=== PATIENT | female | born 1960 | race Caucasian/White ===

== ENCOUNTER 2016-03-15 09:16 | Observation (INO) | payer SELFPAY ==
--- NOTE | 2016-03-15 09:52 | EDPRACDOC ---
- General Information Chief Complaint: Chest Pain Stated Complaint: CHEST PAIN Time Seen by Provider: 03/15/16 09:44 Information Source: Patient Mode of Arrival: Car Home Medications: Home Medications Levothyroxine Sodium [Synthroid] 137 mcg PO DAILY 03/15/16 Pregabalin [Lyrica] 1 cap PO QHS 03/15/16 Benzonatate [Tessalon] 200 mg PO Q8H PRN #90 capsule 03/16/16 Metoprolol Tartrate [Lopressor] 25 mg PO BID #60 tablet 03/16/16 Nicotine [Nicoderm] 21 mg TOP Q24H #30 pat 03/16/16 Omeprazole Magnesium [Prilosec Otc] 20 mg PO BID #42 tablet. 03/16/16 Allergies/Adverse Reactions: Allergies Allergy/AdvReac Type Severity Reaction Status Date / Time diphenhydramine Allergy See Verified 03/15/16 13:19 [From Corrie] Comments - History of Present Illness Onset: YESTERDAY AND [employer] Chest Pain Location: Reports: Substernal Pain Radiation: Reports: None Symptoms Occur: Reports: Gradually, At Rest, With light exertion Cardiac Risk Factors: Reports: Smoker, Hypertension. 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 Denies: SOB, Abdominal Pain, Vomiting, Calf Pain or Swelling, Chest Rash Other History: PT HAD CP LAST YEAR, EVALED BY PCP, EKG REPORTED TO BE NEG. ED Past Medical History - History Reviewed Yes Nurses notes reviewed and agree except as marked If yes, which country: [place] Travel dates: RETURNED January - Patient Medical History Cardiac History: Reports: Hypertension. Denies: Cardiac Catheterization, Stress Test Respiratory History: Reports: Asthma, COPD Psychological History: Reports: Depression Additional Past Medical History: Chronic Pain Syndrome Surgical History: Reports: Appendectomy, Hysterectomy, Tonsillectomy/ Adnoidectomy Additional Past Surgical History: THYROIDECTOMY (BENING NODULES) - Social Medical History Smoking Status: Heavy tobacco smoker (5 or more cigarettes/day or daily pipe/ cigar) ETOH: None Substance Abuse: None Lives With: Family Lives In: Home EDM Review of Systems - Review of Systems ROS Negative Except as Marked: Yes All systems reviewed and were negative except as marked - Physical Exam Constitutional: Alert (Awake), No apparent distress Oriented to: Time, Person, Place Last recorded Vital Signs: Last Vital Signs Temp 98.1 F 03/15/16 09:25 Pulse 67 03/15/16 09:25 Resp 18 03/15/16 09:25 BP 117/56 L 03/15/16 09:25 Pulse Ox 94 03/15/16 09:25 Oxygen Pulse Oxygen Saturation 94 O2 Device Room Air Oxygen Flow Rate Fraction of Inspired Oxygen ( FIO2) - HEENT Head: Normal ( normocephalic) Eye Exam: Normal (PERRL, EOMI, Sclera white) Oropharynx: Normal (Pharynx:Moist without exudate,Gums-no swelling) Tympanic Membrane: Normal ENT EAC: Normal TMJ: Normal Nose: No Symptoms Reported (septum midline) Neck: Normal (FROM, trachea at midline) - Respiratory/Cardiovascular Respiratory: Normal - CTA (BBS clear to auscultation without adventitious sounds ) Cardiovascular: Normal (RRR without murmur, gallop or rub) - GI Auscultation: Normal (NABS) Palpation: Normal (Soft,No rebound or guarding, non distended) Tenderness: Non tender Varela's Sign: Negative - Musculoskeletal Back: Normal (Non-Tender) Extremities: Normal (Normal tone, Pulses 2+ No cyanosis or edema, FROM) - Integumentary Skin: Normal, Warm, Dry Lymphatics: Normal (no adenopathy) - Neurologic Memory Impaired: Normal Motor Function: Normal (Normal tone, Pulses 2+ No cyanosis or edema, FROM) Cranial Nerve: Normal (CN II-X11 intact sensation, strength 5/5) Cerebellar: Normal Mood Description: Normal Perception: Normal ED Chest Pain Exam - Respiratory/Cardiovascular Respiratory: Normal - CTA (clear to auscultation without adventitious sounds) Cardiovascular/Chest: Normal (RRR without murmur, gallop or rub) Radial Pulse: Normal Femoral Pulse: Normal Pedal Pulse: Normal Carotid Arteries: Normal Edema: 5 Chest Palpation: Normal (No chest tenderness) - Action Patient received Aspirin within last 24 hours?: Yes ASA given in the ED: No Patient received Beta [place] within last 24hrs: No - Re-evaluation Re-evaluation 2 Re-evaluation Time: 10:40 (PAIN INTERMITTENTLY, SOME BELCHING, BUT CURRENTLY PAIN FREE. STILL NO PAIN RUQ) - Results 03/15/16 09:50 03/16/16 04:05 - EKG EKG #1 EKG Time: 09:23 -: Yes EKG interpreted by me Rate: bpm: 66 [place]: Normal Rhythm: NSR Block: None Hypertrophy: None ST: Inf, Ischemia (ST DEP) Comments: NO OLD EKG FOR COMPARISON - Diagnostic Imaging Chest Image interpreted by: Radiologist Patient Name: AYDE WEBB LOC: ED : 1960 AGE: 55 Order Date:03/15/16 Date of Service:03/31 Report # [id number] Ord Physician: Hermelinda Dent MD Exam # [id number] Emergency Physician: Hermelinda Dent MD Exam(s): [id number] RAD/DG CHEST PORTABLE CLINICAL DATA: 55-year-old female with chest pain for 1 day. EXAM: PORTABLE CHEST 1 VIEW COMPARISON: None. FINDINGS: Upper limits normal heart size noted. There is no evidence of focal airspace disease, pulmonary edema, suspicious pulmonary nodule/mass, pleural effusion, or pneumothorax. No acute bony abnormalities are identified. Lower cervical spine surgical hardware noted. IMPRESSION: Upper limits normal heart size without evidence of active cardiopulmonary disease. Electronically Signed By: Jorge Tucker M.D. On: 03/15/2016 10:22 Electronically Signed By: Jorge Tucker MD Electronically Signed Date/Time: [id number] Dictate Date/Time: 03/15/16 1020 Technologist: Gita Heard Transcribed By: Machelle Transcribed Date/Time: 03/15/16 1022 - Departure Disposition: Admit IP To This Hospital Condition: Improved Final Diagnosis: Acute coronary syndrome Decision to Admit Time: 10:41 Decision to admit date: 03/20/16 Decision to admit: from ED - Physician Consulted Hospitalist Time Called: 10:40 Provider Called: William Johnson Time [employer] Returned Call: 10:41
[2016-03-15 10:11] LABS: AUTOMATED BASOPHIL 0.6 % (0-2); AUTOMATED EOSINOPHIL 3.5 % (0-5); AUTOMATED LYMPH 29.1 % (17-44); AUTOMATED MONOCYTE 5.2 % (3-10); AUTOMATED NEUTROPHIL 61.6 % (45-76); MPV 7.5 fL (7.4-10.4)
[2016-03-15 10:19] LABS: BLOOD UREA NITROGEN 11 MG/DL (7-17); CALCIUM 9.1 MG/DL (8.4-10.2); CALCULATED OSMOLALITY 270 MOs/Kg (270-290); CHLORIDE 102 mEq/L (98-107); CPK TOTAL WITH POSSIBLE MB 50 IU/L (30-134); GLUCOSE 106 MG/DL (70-99); SODIUM LEVEL 141 mEq/L (137-146); TOTAL PROTEIN 7.1 G/DL (6.3-8.2)
--- NOTE | 2016-03-15 10:25 | DIRPT ---
CLINICAL DATA: 55-year-old female with chest pain for 1 day. EXAM: PORTABLE CHEST 1 VIEW COMPARISON: None. FINDINGS: Upper limits normal heart size noted. There is no evidence of focal airspace disease, pulmonary edema, suspicious pulmonary nodule/mass, pleural effusion, or pneumothorax. No acute bony abnormalities are identified. Lower cervical spine surgical hardware noted. IMPRESSION: Upper limits normal heart size without evidence of active cardiopulmonary disease. Electronically Signed By: Jorge Tucker M.D. On: 03/15/2016 10:22
[2016-03-15 10:29] LABS: PARTIAL THROMB. TIME 24.7 SEC (22-35)
[2016-03-15] MEDS ORDERED: Enoxaparin 1 mg per kg per dose SQ ONE (10:36)
[2016-03-15] MEDS ORDERED: ENOXAPARIN 80 MG/0.8 ML PFS SQ ONE (11:00)
[2016-03-15] MEDS ORDERED: TEMAZEPAM 15 MG CAP PO PRN (11:07)
[2016-03-15] MEDS ORDERED: MORPHINE 2 MG/ML INJECTION IV PRN (11:07)
[2016-03-15] MEDS ORDERED: ACETAMINOPHEN 325 MG/TAB TABLET PO PRN (11:07)
[2016-03-15] MEDS ORDERED: NITROGLYCERINE 0.4 MG TAB SL PRN (11:07)
[2016-03-15] MEDS ORDERED: ONDANSETRON HCL 4 MG/2 ML VIAL IV PRN (11:07)
[2016-03-15] MEDS ORDERED: DOCUSATE-SENNA CONCENTRATE TAB PO PRN (11:07)
[2016-03-15] MEDS ORDERED: ACETAMINOPHEN 650 MG SUPP PR PRN (11:07)
[2016-03-15] MEDS ORDERED: PROMETHAZINE 25 MG/ML VIAL IV PRN (11:07)
[2016-03-15] MEDS ORDERED: SIMETHICONE 80 MG TAB PO PRN (11:07)
[2016-03-15] MEDS ORDERED: BENZONATATE 100 MG PERLES PO PRN (11:07)
[2016-03-15] MEDS: METOPROLOL TARTRATE 25 MG TAB PO SCH ×2 (11:32→20:28)
[2016-03-15] MEDS: NITROGLYCERINE 2 % OINTMENT PACK TOP SCH ×2 (11:59→17:03)
[2016-03-15] MEDS ORDERED: Pharmacy Order Set Alert SCH (12:00)
[2016-03-15] MEDS: NICOTINE 21 MG PATCH TOP SCH (13:47)
[2016-03-15] MEDS ORDERED: Vaccine Screening Complete SCH (14:00)
--- NOTE | 2016-03-15 19:09 | HISTPHYS ---
- Chief Complaint chest pain - History of Present Illness Sherine Goodamn is a 55 year old woman who awakened yesterday with sharp stabbing chest pain. It lasted about 10 minutes, then resolved,, but recurred later in the day. It seemed to get better if she got up and moved around. She had a lot of gas and belching associated with it. She took an aspirin and it seemed to improve. Today the same thing happened again; she awakened from sleep with substernal chest pain, pressure and belching. She took another aspirin, but it did not get better today. She is a smoker, and smokes about 1/2 pack of cigarettes daily. She was trying to quit and using vapor cigarettes, but went back to real cigarettes a few months ago. - Medical History Cardiac History: Reports: Hypertension. Denies: Cardiac Catheterization, Syncope Respiratory History: Reports: Asthma, COPD GI/ History: Reports: No Significant History. Denies: Kidney Stones, Diverticulosis Musculoskeletal History: Reports: Arthritis Systemic History: Reports: Hypothyroidism (throidectomy) Neurological History: Denies: Cerebrovascular Accident, Seizures Psychological History: Reports: Depression - Surgical History Reports: Appendectomy, Hysterectomy, Tonsillectomy/Adnoidectomy, Other ( thyroidectomy,carpal tunnel, B lumpectomy, C-spine fusion). Denies: Cholecystectomy, Cardiac Catheterization - Medictions/Allergies Allergies diphenhydramine [From Benadryl] Allergy (Verified 03/15/16 13:19) See Comments Current Medication List: Reviewed Home Medications Aspirin [Aspirin EC] 81 mg PO DAILY 03/15/16 Hydrochlorothiazide 12.5 mg PO BID 03/15/16 Levothyroxine Sodium [Synthroid] 137 mcg PO DAILY 03/15/16 Pregabalin [Lyrica] 1 cap PO QHS 03/15/16 - Family History Reports: Hypertension, Diabetes, Stroke (grandmother maternal), Cardiac Disorders. Denies: Cancer - Social History Travel Outside of [place] in the Last 3 Months?: Yes If yes, which country: [place] Travel dates: december-january Lives: with Spouse Smoking Status: Heavy tobacco smoker (5 or more cigarettes/day or daily pipe/ cigar) Social History: Denies: Alcohol Use - Review of Systems Constitutional: No Symptoms Reported Eyes: No Symptoms Reported Ears: No Symptoms Reported Nose: No Symptoms Reported Mouth: No Symptoms Reported Throat/Neck: No Symptoms Reported Respiratory: Shortness of Breath Cardiovascular: Chest Pain, Orthopnea. negative: Edema, Palpitations, PND Gastrointestinal: Nausea, Heartburn, Other (belching/eructation) Genitourinary: No Symptoms Reported, Other (s/p hysterectomy). negative: Dysuria, Frequency Neurological: No Symptoms Reported Musculoskeletal:: No Symptoms Reported Integumentary: No Symptoms Reported Allergic/Immunologic: No Symptoms Reported Hematologic: No Symptoms Reported Endocrine: No Symptoms Reported. negative: Polyuria, Diabetes Psychiatric: No Symptoms Reported - Physical Exam Vital Signs: Initial Vitals Temperature 98.1 F 03/15/16 09:25 Pulse Rate 67 03/15/16 09:25 Respiratory Rate 18 03/15/16 09:25 Blood Pressure 117/56 L 03/15/16 09:25 Pulse Oxygen Saturation 94 03/15/16 09:25 Constitutional: No apparent distress, Alert Oriented to: Time, Person, Place - HEENT Head: Normal Eye: Normal (PERRL: EOMI) Oropharynx: Normal Tympanic Membrane: Normal ENT EAC: Normal Nose: No Symptoms Reported. negative: Bleeding, Congestion, Discharge Respiratory: Normal - CTA Cardiovascular: Normal (regular rhythm and rate, no murmur) - GI Auscultation: Normal Palpation: Normal Tenderness: Non tender Varela's Sign: Negative Rectal Exam: Deferred - Exam Deferred: Yes - Musculoskeletal Back: Normal, No Palpable Step-off Extremities: Normal. negative: Clubbing, Cyanosis, Edema Spine: non-tender - Integumentary Skin: Warm, Dry Lymphatics: Normal - Neurologic Memory Impaired: Normal Motor Function: Normal Cranial Nerve: Normal Cerebellar: Normal Mood Description: Normal Thought: Coherent Perception: Normal - Focused CV Perfusion Exam Vital Signs: Last Vital Signs Temp 98.0 F 03/15/16 16:00 Pulse 54 L 03/15/16 17:00 Resp 18 03/15/16 16:00 BP 126/64 03/15/16 16:00 Pulse Ox 97 03/15/16 16:00 - Lab Results Laboratory Tests 03/15/16 03/15/16 03/15/16 09:50 09:50 09:50 WBC 9.4 Hgb 15.1 Hct 44.7 Plt Count 283 Neut % (Auto) 61.6 Lymph % (Auto) 29.1 [place] % (Auto) 5.2 PT 10.1 INR 1.0 APTT 24.7 Sodium 141 Potassium 3.6 Chloride 102 Carbon Dioxide 29 Anion Gap 14 BUN 11 Creatinine 0.70 Estimated GFR (MDRD) > 60 Glucose 106 H Calculated Osmolality 270 Calcium 9.1 Creatine Kinase 50 Troponin I < 0.01 Albumin 4.1 03/15/16 03/15/16 12:25 15:50 WBC Hgb Hct Plt Count Neut % (Auto) Lymph % (Auto) [place] % (Auto) PT INR APTT Sodium Potassium Chloride Carbon Dioxide Anion Gap BUN Creatinine Estimated GFR (MDRD) Glucose Calculated Osmolality Calcium Creatine Kinase Troponin I < 0.01 < 0.01 Albumin - Diagnostic Findings EKG: sinus rhythm @ 66 bpm, ST-depression inferior leads (nonspecific, possible ischemia) CXR:IMPRESSION: Upper limits normal heart size without evidence of active cardiopulmonary disease. Electronically Signed By: Jorge Tucker M.D. On: 03/15/2016 10:22 - Assessment (1) Chest pain in adult R07.9 - CHEST PAIN, UNSPECIFIED Acute Present on Admission: Yes Observation on telemetry unit, obtain 3 sets of serial troponins to rule out acute LA, if all are normal proceed with stress testing in morning. Begin beta- lima, aspirin daily, hold diuretic for now. Provide NTG, morphine as needed for relief of chest pain. Check fasting lipid profile and begin statin. (2) Hypertension I10 - ESSENTIAL (PRIMARY) HYPERTENSION Acute Present on Admission: Yes Qualifiers: Hypertension type: essential hypertension Qualified Code(s): I10 - Essential (primary) hypertension As noted, will hold diuretic for now, use beta-lima & NTG to enhance blood flow to coronary arteries as well as controlling BP. (3) Abnormal EKG R94.31 - ABNORMAL ELECTROCARDIOGRAM [ECG] [EKG] Acute Present on Admission: Yes Nonspecific ST changes, may represent inferior ischemia. No old EKG for comparison. will schedule for exercise-Cardiolite in AM. (4) COPD (chronic obstructive pulmonary disease) J44.9 - CHRONIC OBSTRUCTIVE PULMONARY DISEASE, UNSPECIFIED Chronic Present on Admission: Yes Qualifiers: COPD type: unspecified COPD Qualified Code(s): J44.9 - Chronic obstructive pulmonary disease, unspecified No evidence of acute exacerbation. Will order PRN nebs. (5) Hypothyroidism E03.9 - HYPOTHYROIDISM, UNSPECIFIED Acute Present on Admission: Yes Qualifiers: Hypothyroidism type: acquired Qualified Code(s): E03.9 - Hypothyroidism, unspecified Continue current dose of Synthroid. (6) Tobacco abuse Z72.0 - TOBACCO USE Acute Present on Admission: Yes Strongly encouraged complete smoking cessation.
[2016-03-16] MEDS ORDERED: REMOVE NITROGLYCERIN PASTE MAR ALERT SCH
[2016-03-16 04:33] VITALS: BMI 30.7
[2016-03-16 05:05] LABS: LDL (calc.) 120.4 MG/DL (<100); VLDL (calc.) 40.6 MG/DL (5-40)
[2016-03-16] MEDS: NITROGLYCERINE 2 % OINTMENT PACK TOP SCH ×2 (05:19→12:11)
[2016-03-16] MEDS ORDERED: ASPIRIN 325 MG TAB PO SCH (08:00)
[2016-03-16] MEDS ORDERED: SESTAMIBI 8 MCI V IV ONE (09:35)
[2016-03-16 11:58] VITALS: BP 119/68; PULSE 63; TEMP 97.8
[2016-03-16] MEDS ORDERED: LEVOTHYROXINE 137 MCG TABLET PO SCH (12:00)
[2016-03-16] MEDS: METOPROLOL TARTRATE 25 MG TAB PO SCH (12:09)
[2016-03-16] MEDS: NICOTINE 21 MG PATCH TOP SCH (12:10)
--- NOTE | 2016-03-16 12:49 | PCM.STRESS ---
TREADMILL MYOCARDIAL PERFUSION STRESS TEST DATE OF PROCEDURE: 03/16/16 INDICATION: Chest discomfort-ME ruled out RESTING DATA: HR 54 B/P 134/74 Chest clear Cor: Regular rhythm, soft ejection murmur RESTING EKG: [NSR] normal tracing PROTOCOL: Approx 8 mCi of technetium-99m pyrophosphate (Cardiolyte) was injected intravenously and tomograhic imaging performed at rest. An hour later, the patient performed treadmilll exericse on a Jesus protocol to a level of 9.7 METS, achieveing a peak heart rate of 142, 85 percent of predicted maximum. BP ricki normally to 166/80. At peak exercise, an additional 25 mCi of Cardiolyte was injected and tomographic imaging repeated. Test stopped because of fatigue and target heart rate achieved.. No chest pain. STRESS EKG: Rhythm: Sinus. ST-T changes: None MYOCARDIAL PERFUSION IMAGING: Rotational display of raw projection data documents [stable pt position during imaging]. There is homogeneous radiotracer uptake throughout on both rest and stress images. Gated imaging discloses normal wall thickening in all segments within normal end systolic volume of 25 mL and an ejection fraction of 65%. IMPRESSION: (1) Functional capacity is good. 9.8 METS (2) Normal resting left ventricular size and function, with end-systolic volume of 25 ml and ejection fraction of 65 %. (3) normal perfusion images-rest and stress Negative Treadmill perfusion stress test for ischemia.
--- NOTE | 2016-03-16 13:35 | PCM.DCS92 ---
- Final/Secondary Discharge Diagnosis (1) Chest pain in adult Acute R07.9 - CHEST PAIN, UNSPECIFIED Present on Admission: Yes Comment: Observation on telemetry unit, obtained 3 sets of serial troponins to rule out acute HI, all are normal, proceed with stress testing. Begin beta- lima, aspirin daily, hold diuretic for now. Provide NTG, morphine as needed for relief of chest pain. Check fasting lipid profile and begin statin. Stress test is negative for any sign of acute cardiac ischemia. (2) Hypertension Acute I10 - ESSENTIAL (PRIMARY) HYPERTENSION Present on Admission: Yes essential hypertension I10 - Essential (primary) hypertension Comment: As noted, will hold diuretic for now, use beta-lima & NTG to enhance blood flow to coronary arteries as well as controlling BP. (3) Abnormal EKG Acute R94.31 - ABNORMAL ELECTROCARDIOGRAM [ECG] [EKG] Present on Admission: Yes Comment: Nonspecific ST changes, may represent inferior ischemia. No old EKG for comparison. Scheduled for exercise-Cardiolite in AM, which showed no evidence of ischemia. (4) COPD (chronic obstructive pulmonary disease) Chronic J44.9 - CHRONIC OBSTRUCTIVE PULMONARY DISEASE, UNSPECIFIED Present on Admission: Yes unspecified COPD J44.9 - Chronic obstructive pulmonary disease, unspecified Comment: No evidence of acute exacerbation. Will order PRN nebs. (5) Hypothyroidism Acute E03.9 - HYPOTHYROIDISM, UNSPECIFIED Present on Admission: Yes acquired E03.9 - Hypothyroidism, unspecified Comment: Continue current dose of Synthroid. (6) Epigastric abdominal pain Acute R10.13 - EPIGASTRIC PAIN Present on Admission: Yes Comment: With associated belching; will schedule gall-bladder ultrasound. May be reflux symptoms. Trial of Prilosec OTC 20 mg BID. (7) Tobacco abuse Acute Z72.0 - TOBACCO USE Present on Admission: Yes Comment: Strongly encouraged complete smoking cessation. Discharge Disposition: Home Discharge Condition: Improved Cognitive Discharge Status: Unimpaired Fuctional Discharge Status: Independent Physician Follow up/Referrals: Josefina Bukr MD [Primary Care Provider] - Hospital to call w/ appt. New Prescriptions: Metoprolol Tartrate [Lopressor] 25 mg PO BID #60 tablet Nicotine [Nicoderm] 21 mg TOP Q24H #30 pat Omeprazole Magnesium [Prilosec Otc] 20 mg PO BID #42 tablet.dr Discharge Home Medication List Levothyroxine Sodium [Synthroid] 137 mcg PO DAILY 03/15/16 [History Confirmed Last Taken 03/15/16] Pregabalin [Lyrica] 1 cap PO QHS 03/15/16 [History Confirmed 03/15/16 Last Taken 03/14/16] Benzonatate [Tessalon] 200 mg PO Q8H PRN #90 capsule 03/16/16 [Rx Last Taken Unknown] Metoprolol Tartrate [Lopressor] 25 mg PO BID #60 tablet 03/16/16 [Rx Last Taken Unknown] Nicotine [Nicoderm] 21 mg TOP Q24H #30 pat 03/16/16 [Rx Last Taken Unknown] O2 Device: Room Air Diet at Discharge: Heart Healthy Activity: No Restrictions Call Office For: Worsening Symptoms Discontinue use of:: Alcohol - DC Summary Notes Hospital Course Note:: Discharge summary on patient named AYDE WEBB admitted [facility]16 by Destiny Eaton MD. Date of discharge is [03/16/16]. Patient placed on observation on telemetry unit, obtained 3 sets of serial troponins to rule out acute HI, all are normal, proceed with stress testing. Begin beta-lima, aspirin daily, hold diuretic for now. Provide NTG, morphine as needed for relief of chest pain. Check fasting lipid profile and begin statin. Stress test is negative for any sign of acute cardiac ischemia. We will schedule her for an outpatient gall-bladder ultrasound. I have advised her to take Prilosec OTC twice a day in the mean-time to see if it helps her symptoms. She is to follow-up with Dr.Linda Burk at the [facility]. Code: 94688 (>30min.) - Physical Exam Vital Signs: Last Vital Signs Temp 97.8 F 03/16/16 11:57 Pulse 63 03/16/16 11:57 Resp 18 03/16/16 11:57 BP 119/68 03/16/16 11:57 Pulse Ox 95 03/16/16 11:57 Oxygen Pulse Oxygen Saturation 95 O2 Device Room Air Oxygen Flow Rate Fraction of Inspired Oxygen ( FIO2) Constitutional: No apparent distress, Alert Oriented to: Time, Person, Place - HEENT Head: Normal Eye: Normal (PERRL: EOMI) Oropharynx: Normal Tympanic Membrane: Normal ENT EAC: Normal Nose: No Symptoms Reported. negative: Bleeding, Congestion, Discharge - Respiratory/Cardiovascular Respiratory: Normal - CTA Cardiovascular: Normal (regular rhythm and rate, no murmur) - GI Auscultation: Normal Palpation: Normal Tenderness: Non tender Varela's Sign: Negative Rectal Exam: Deferred - Musculoskeletal Back: Normal, No Palpable Step-off Extremities: Normal. negative: Clubbing, Cyanosis, Edema - Integumentary Skin: Warm, Dry Lymphatics: Normal - Neurologic Memory Impaired: Normal Motor Function: Normal Cranial Nerve: Normal Cerebellar: Normal Mood Description: Normal Thought: Coherent Perception: Normal
[2016-03-16] MEDS ORDERED: PREGABALIN 100 MG CAP PO SCH (21:00)
--- NOTE | 2016-03-17 16:42 | CAPUEKG ---
[place], [place] Test Date: 2016-03-15 Pat Name: AYDE WEBB Department: Room: 438 Gender: Female Election Clerk: DENIS SCHWABB: Requested By: Order Number: Reading MD: Ramirez Young Measurements Intervals [place] Rate: 54 P: 44 MN: 138 QRS: 66 QRSD: 92 T: 82 QT: 418 QTc: 396 Interpretive Statements Sinus bradycardia T wave abnormality, consider anterior ischemia Poor anterior R wave progression, probably lead malposition, new since prior EKG. Abnormal ECG Electronically Signed On 03-17-16 16:41:57 EST by Ramirez Young <[id number] [id number]
== END 2016-03-16 14:38 | disposition home or self-care (01) ==
LOC: ED 09:16 → PCU 11:07
PROVIDERS: ADMIT Family Medicine; ATTEND Family Medicine
DX: R07.9 Chest pain, unspecified (principal); I10 Essential (primary) hypertension; R94.31 Abnormal electrocardiogram [ECG] [EKG]; J44.9 Chronic obstructive pulmonary disease, unspecified; E03.9 Hypothyroidism, unspecified; J45.909 Unspecified asthma, uncomplicated; F17.210 Nicotine dependence, cigarettes, uncomplicated; Z79.82 Long term (current) use of aspirin; Z79.899 Other long term (current) drug therapy
CPT/HCPCS: 36415; 71010; 78452; 80053; 80061; 82550; 82947; 84484; 85025; 85610; 85730; 93005; 93017; 96372; 99285; A9500; G0378; J1650; J3490